=== PATIENT | female | born 1940 | race Two or more races ===

== ENCOUNTER 2023-12-09 10:05 | Emergency (ER) | payer MEDICARE, OTHER ==
[2023-12-09 10:30] VITALS: BP 138/60; O2SAT 98
--- NOTE | 2023-12-09 11:15 | XRAY Report ---
PROCEDURE: Knee 4+V RT INDICATIONS: Trauma TECHNIQUE: 4 views of the knee were acquired. COMPARISON: None. FINDINGS: Bones: Questionable incomplete fracture versus subchondral cystic changes at the superior portion of the patella seen on lateral view only. Osseous structures otherwise appear to be intact. There is mi ld stenosis osteopenia. Soft tissues: Moderate knee joint effusion. Chondrocalcinosis. IMPRESSION: 1.Questionable nondisplaced fracture versus focal subchondral cystic changes at the superior patella as seen on one view only. Recommend correlation for point tenderness. MRI or CT could be performed fo r further evaluation if indicated clinically. 2.Moderate joint effusion. 3.Chondrocalcinosis. Reviewed by: Александр Cobian MD on 12/09/2023 11:14 AM PDT Approved by: Александр Cobian MD on 12/09/2023 11:14 AM PDT Station ID: [id number]
--- NOTE | 2023-12-09 12:02 | ED Physician Documentation ---
PD HPI LOWER EXT INJURY - Stated complaint Stated Complaint: RT KNEE SWELLING/PX - Chief complaint Chief Complaint: Ext Problem - History obtained from History obtained from: Patient - History of Present Illness PD HPI LOW EXT INJURY LOCATION: Right, Knee Type of injury: Other (has arthritis with flare ups at times. Has had pain and swelling for severl days. Went to Walk In and told to f/u ER if worse. No Rx.). No: Fall, Twist Similar symptoms before: Diagnosis (knee and meniscal arthritis. Has had draining of effusions and also steroid injection about 6-8 months ago that helped for months.) PD PAST MEDICAL HISTORY - Past Medical History Cardiovascular: High cholesterol Respiratory: Asthma, COPD Neuro: None Endocrine/Autoimmune: None GI: Diverticulitis INFORMATION SERVICES TECH: None : None HEENT: None Psych: Depression, Anxiety Musculoskeletal: Osteoarthritis Derm: None - Past Surgical History Past Surgical History: Yes General: Bowel surgery /INFORMATION SERVICES TECH: Hysterectomy - Present Medications Home Medications: Ambulatory Orders Medication Instructions Recorded Confirmed Fluticasone/Salmeterol 250/50 1 puffs INH BID 02/05/13 12/09/23 [Advair 250 Mcg/50 Mcg] Montelukast Sodium [Singulair] 10 mg PO DAILY 02/05/13 12/09/23 Simvastatin 10 mg PO DAILY 02/05/13 12/09/23 Sertraline [Zoloft] 50 mg PO DAILY 12/09/23 12/09/23 risperiDONE [Risperdal] 0.5 mg PO BID 12/09/23 12/09/23 - Allergies Allergies/Adverse Reactions: Allergies Allergy/AdvReac Type Severity Reaction Status Date / Time Penicillins AdvReac Unknown Rash Verified 12/09/23 10:22 Sulfa (Sulfonamide AdvReac Unknown Rash Verified 12/09/23 10:22 Antibiotics) - Social History Does the pt smoke?: No Smoking Status: Former smoker Does the pt drink ETOH?: No Does the pt have substance abuse?: No - Immunizations Immunizations are current?: Yes - POLST Patient has POLST: No PD ED PE NORMAL - Vitals Vital signs reviewed: Yes - General General: Alert and oriented X 3, No acute distress, Well developed/nourished - Derm Derm: Normal color, Warm and dry, No rash - Extremities Extremities: Other (right knee general tenderness but more medially. Mild effusion. ) - Neuro Neuro: No motor deficit, No sensory deficit Results - Vitals Vitals: Oxygen O2 Source Room air - Rads (name of study) knee Relevant Findings:: Prelim report reviewed, EMP independent interpretation of test (arthritic changes) PD Medical Decision Making - ED course Complexity details: considered differential, d/w patient ED course: Patient requested a joint injection. She had had one 6 to 8 months ago. This seems reasonable to do at this point. I would go with the recommended dosing per up to date of 10 to 15 mg. Local anesthetic of the side of the knee with lidocaine at the skin. I then entered the joint space and withdrew 2 to 3 cc of fluid to verify location. I was not able to get more out than that. I then switched syringes to inject 15 mg of Kenalog with 2 mL of lidocaine. Mild pain with that but no complications. Departure - Departure Disposition: 01 Home, Self Care Clinical Impression: Knee pain, Arthritis of knee, right Condition: Stable Record reviewed to determine appropriate education?: Yes Comments: We did do an injection of your knee. Hopefully the anti-inflammatory effect will benefit this and the pain will be much better over the next day or 2. Meanwhile you can do some anti-inflammatory such as ibuprofen or naproxen 2-3 [id number] tablets twice daily with food. To that add Tylenol/acetaminophen 500 to 650 mg 4 times daily for the next several days and then decrease as your pain is doing better. Activity as tolerated. Recheck if not improving well over the next several days or so. Return if worse. Forms: PCP List Discharge Date/Time: 12/09/23 13:55
[2023-12-09] MEDS: NAPROXEN 250 MG TABLET PO STA (13:04)
[2023-12-09] MEDS: TRIAMCINOLONE 40 MG/ML VIAL MC STA (13:54)
[2023-12-09] MEDS: lidocaine 1% 20 ML MDV SUBQ ONE (13:55)
== END 2023-12-09 13:55 | disposition home or self-care (01) ==
LOC: ED 10:05
DX: M17.11 Unilateral primary osteoarthritis, right knee (principal); M25.461 Effusion, right knee; M11.261 Other chondrocalcinosis, right knee; E78.00 Pure hypercholesterolemia, unspecified; J44.9 Chronic obstructive pulmonary disease, unspecified; Z79.899 Other long term (current) drug therapy
CPT/HCPCS: 20610; 73564; 99283; A9270

== ENCOUNTER 2023-12-15 10:47 | Emergency (ER) | payer MEDICARE ==
[2023-12-15 11:17] VITALS: BP 133/57; O2SAT 98
[2023-12-15 11:28] LABS: RAPID STREP SCREEN Negative (Negative)
--- NOTE | 2023-12-15 11:37 | ED Physician Documentation ---
PD HPI HEENT - Stated complaint Stated Complaint: SORE THROAT - Chief complaint Chief Complaint: Heent - History obtained from History obtained from: Patient - Additional information Additional information: 83-year-old woman with history of COPD presents with cough productive of small amount of yellow sputum and sore throat for the last 9 days. No fevers. No sick contacts. Not more short of breath than usual. PD PAST MEDICAL HISTORY - Past Medical History Past Medical History: Yes Cardiovascular: High cholesterol Respiratory: Asthma, COPD Neuro: None Endocrine/Autoimmune: None GI: Diverticulitis DOOR INSTALLER: None : None HEENT: None Psych: Depression, Anxiety Musculoskeletal: Osteoarthritis Derm: None - Past Surgical History Past Surgical History: Yes General: Bowel surgery /DOOR INSTALLER: Hysterectomy - Present Medications Home Medications: Ambulatory Orders Medication Instructions Recorded Confirmed Fluticasone/Salmeterol 250/50 1 puffs INH BID 02/05/13 12/15/23 [Advair 250 Mcg/50 Mcg] Montelukast Sodium [Singulair] 10 mg PO DAILY 02/05/13 12/15/23 Simvastatin 10 mg PO DAILY 02/05/13 12/15/23 Sertraline [Zoloft] 50 mg PO DAILY 12/09/23 12/15/23 risperiDONE [Risperdal] 0.5 mg PO BID 12/09/23 12/15/23 Doxycycline [Vibramycin] 100 mg PO BID #14 tablet 12/15/23 - Allergies Allergies/Adverse Reactions: Allergies Allergy/AdvReac Type Severity Reaction Status Date / Time Penicillins AdvReac Unknown Rash Verified 12/15/23 11:08 Sulfa (Sulfonamide AdvReac Unknown Rash Verified 12/15/23 11:08 Antibiotics) - Social History Does the pt smoke?: No Smoking Status: Never smoker Does the pt drink ETOH?: No Does the pt have substance abuse?: No - Immunizations Immunizations are current?: Yes - POLST Patient has POLST: No PD ED PE NORMAL - Vitals Vital signs reviewed: Yes - General General: Alert and oriented X 3, No acute distress - HEENT HEENT: PERRL, EOMI - Neck Neck: Other (Mild redness of the tonsillar pillars without swelling or exudates. Normal phonation. No adenopathy.) - Cardiac Cardiac: RRR, No murmur - Respiratory Respiratory: No respiratory distress, Clear bilaterally - Abdomen Abdomen: Non tender - Neuro Neuro: Alert and oriented X 3 - Psych Psych: Normal mood, Normal affect Results - Vitals Vitals: Vital Signs - 24 hr 12/15/23 11:05 Temperature 36.4 C L Heart Rate 69 Respiratory 20 Rate Blood Pressure 133/57 H O2 Saturation 98 Oxygen O2 Source Room air - Labs Labs: Laboratory Tests 12/15/23 11:10 Group A Strep Rapid Negative PD Medical Decision Making - ED course ED course: Given advanced age, the timeframe and underlying comorbidities reasonable to trial some antibiotics despite negative strep testing. She declined steroids due to side effects. Departure - Departure Disposition: Home, Self Care Clinical Impression: URI (upper respiratory infection) Qualifiers: URI type: unspecified viral URI Qualified Code(s): J06.9 - Acute upper respiratory infection, unspecified COPD (chronic obstructive pulmonary disease) Qualifiers: COPD type: unspecified COPD Qualified Code(s): J44.9 - Chronic obstructive pulmonary disease, unspecified Condition: Good Record reviewed to determine appropriate education?: Yes Instructions: ED Upper Resp Infec Abx Tx Prescriptions: Doxycycline [Vibramycin] 100 mg PO BID #14 tablet Comments: I sent your prescription [facility] to [facility] in [place]. Follow-up with your doctor in a week if not improved. Return for new or worsening symptoms.
== END 2023-12-15 11:41 | disposition home or self-care (01) ==
LOC: ED 10:47
DX: J06.9 Acute upper respiratory infection, unspecified (principal); J44.9 Chronic obstructive pulmonary disease, unspecified; E78.00 Pure hypercholesterolemia, unspecified; Z87.19 Personal history of other diseases of the digestive system; Z79.899 Other long term (current) drug therapy
CPT/HCPCS: 87070; 87430; 99283